=== PATIENT | female | born 1980 | race African-American/Black ===

== ENCOUNTER 2019-02-21 06:18 | Observation (INO) | payer MEDICAID, OTHER ==
[~2019-02-21] VITALS: Ht 170.2 cm; Wt 78.9 kg
[~2019-02-21 06:18] MED LIST: FERR1TAB25 PO; IBUP-779 PO; MULT-1116 PO
[2019-02-21] MEDS ORDERED: LACTATED RINGERS 250 ML IV ONE (06:30)
[2019-02-21] MEDS ORDERED: ACETAMINOPHEN 500MG TABLET PO ONE (06:45)
[2019-02-21] MEDS ORDERED: LACTATED RINGERS 1,000 ML IV SCH (08:00)
== END 2019-02-21 10:17 | disposition home or self-care (01) ==
LOC: 8 EST LDRP 06:18
PROVIDERS: ADMIT Specialist; ATTEND Specialist
DX: O9A.213 Injury, poisoning and certain other consequences of external causes complicating pregnancy, third trimester (principal); O36.8130 Decreased fetal movements, third trimester, not applicable or unspecified; R10.30 Lower abdominal pain, unspecified; Z3A.31 31 weeks gestation of pregnancy; Y09 Assault by unspecified means
CPT/HCPCS: 76805; 76818; 99281; G0378; 96360; 96361

== ENCOUNTER 2020-11-06 05:01 | Emergency (ER) | payer MEDICAID ==
[~2020-11-06] VITALS: Ht 170.2 cm; Wt 75.0 kg
[2020-11-06] MEDS ORDERED: SODIUM CHLORIDE 0.9% 1,000 ML IV ONE ×2 (06:00→06:15)
[2020-11-06 06:24] LABS: BASOPHILS % 0.6 % (0.0-2.0); EOSINOPHILS % 0.7 % (0.0-5.0); HEMOGLOBIN. 14.4 g/dL (12.0-16.0); MEAN CORPUSCULAR HEMOGLOBIN 32.6 pg (28.0-32.0); MEAN CORPUSCULAR VOLUME 95.4 fL (81.0-99.0); MEAN PLATELET VOLUME 8.1 fl (7.4-10.4); MONOCYTES % 8.1 % (2.0-8.0); NEUTROPHILS % 74.6 % (40.0-76.0); PLATELET 179 x1000/uL (130-400); RED BLOOD CELL COUNT 4.41 mill/uL (4.2-5.4); RED CELL DISTRIBUTION WIDTH 14.5 % (11.6-14.6)
[2020-11-06 06:28] LABS: CHLORIDE 111 mEq/L (98-107)
[2020-11-06] MEDS ORDERED: MAGNESIUM 1 G PREMIX 100 ML IV ONE (06:30)
[2020-11-06 06:32] LABS: ETHANOL BLOOD < 10 mg/dL
[2020-11-06] MEDS ORDERED: POTASSIUM CHLORIDE 20MEQ TABLET SR PO SCH (08:15)
[2020-11-06 11:57] VITALS: BP 152/78
== END 2020-11-06 11:58 | disposition home or self-care (01) ==
LOC: ER 05:01
DX: F14.980 Cocaine use, unspecified with cocaine-induced anxiety disorder (principal); R03.0 Elevated blood-pressure reading, without diagnosis of hypertension; E87.6 Hypokalemia; R94.31 Abnormal electrocardiogram [ECG] [EKG]
CPT/HCPCS: 36415; 71045; 80053; 80320; 85025; 93005; 96365; 99285; J3475; J7030; G0480

== ENCOUNTER 2021-02-02 19:31 | Emergency (ER) | payer MEDICAID ==
[~2021-02-02] VITALS: Ht 167.6 cm; Wt 68.8 kg
[2021-02-02] MEDS ORDERED: ACETAMINOPHEN 325MG TABLET PO ONE (21:15)
[2021-02-02] MEDS ORDERED: LIDOCAINE HCL 1% 20ML VIAL (Pyxis) INJ INFIL ONE (21:15)
[2021-02-02] MEDS ORDERED: LIDOCAINE HCL 1% 10 MG/ML 10ML VIAL IJ NR (21:30)
[2021-02-02] MEDS ORDERED: TETANUS, DIPHTHERIA, PERTUSSIS VAC/PF 0.5ML (>10YR OLD) IM ONE (22:15)
[2021-02-02 23:35] VITALS: BP 129/84
== END 2021-02-02 23:35 | disposition home or self-care (01) ==
LOC: ER 19:31
DX: S01.511A Laceration without foreign body of lip, initial encounter (principal); F14.10 Cocaine abuse, uncomplicated; Y04.0XXA Assault by unarmed brawl or fight, initial encounter; Y93.89 Activity, other specified; Y92.89 Other specified places as the place of occurrence of the external cause; Y99.8 Other external cause status
CPT/HCPCS: 12011; 90471; 90715; 99283; J3490; Z7610